=== PATIENT | male | born 1960 | race Two or more races ===

== ENCOUNTER → 2024-06-18 | Outpatient (CLI) | payer MEDICAID, SELFPAY ==
--- NOTE | 2024-06-18 10:00 | XR_ITS ---
Examination: Testicular sonography complete TECHNIQUE: Grayscale sonographic images testes, assessment arterial inflow venous outflow Doppler spectral analysis carful analysis INDICATIONS: History right epididymal cyst 5 mm left epididymal cyst 6 mm mild left hydrocele and testicular sonography July 02, 2021 FINDINGS: Right testis 5.0 x 2.4 x 3.8 cm Epididymis 34 mm 4 x 6 mm epididymal cyst Arterial flow testicle. No testicular mass Mild hydrocele Left testis 4.7 x 2.5 x 3.5 cm Epididymis 23 mm 4 x 6 mm epididymal cyst Arterial flow testicle. No testicular mass Mild hydrocele IMPRESSION: No testicular torsion or testicular mass Bilateral benign epididymal cysts
== END | disposition home or self-care (01) ==
LOC: CDIM 09:44
PROVIDERS: PCP Internal Medicine; Referring Provider Internal Medicine; Visit Provider Internal Medicine
DX: N50.3 Cyst of epididymis (principal)
CPT/HCPCS: 76870